=== PATIENT | male | born 1980 | race Caucasian/White ===

== ENCOUNTER 2017-08-10 14:31 | Emergency (ER) | payer OTHER, MEDICAID ==
[~2017-08-10] VITALS: Ht 172.7 cm; Wt 72.6 kg
--- NOTE | 2017-08-10 14:56 | Emergency Room Report ---
History of Present Illness General Chief Complaint: Allergic Reaction Source: Patient Present Illness HPI 37-year-old male presents to the emergency department complaining of progressive rash that is erythematous, itching and associated swelling that began on his neck, anterior chest and back this morning upon awakening. Patient states that he took a cold shower and the rash improved moderately but then came back even worse than it was initially. Patient states that upon return of the rash is now involved also parts of his face, bilateral upper extremities and his thought is. Patient denies fevers or chills. Patient states that he did smoke a new strain of marijuana that he is not used to and thinks that he may have an allergy to that. Patient denies allergies otherwise. Denies lesions/rashes elsewhere on the body. Denies new medications or body washes or creams. Denies swelling of the lips, tongue , throat or airway. Denies wheezing, or shortness of breath. Denies recent travel, recent illness or ill contacts. denies blisters, oral lesions, or sloughing of the skin. Pt. denies pain. Allergies: Coded Allergies: No Known Allergies (Unverified , 08/10/17) Patient History Past Medical History: see triage record Past Surgical History: none Pertinent Family History: none Social History: Reports: drug use - marijuana Reviewed Nursing Documentation: PMH: Agreed, PSxH: Agreed Nursing Documentation-PM Past Medical History: No Stated History Review of Systems All Other Systems: negative except mentioned in HPI Physical Exam Vital Signs Date Time Temp Pulse Resp B/P (MAP) Pulse Ox O2 Delivery O2 Flow Rate FiO2 08/10/17 14:34 98.3 72 18 122/72 100 Room Air 98.2 Sp02 EP Interpretation: reviewed, normal General Appearance: no apparent distress, alert, GCS 15, non-toxic Head: normocephalic, atraumatic Eyes: bilateral eye normal inspection, bilateral eye PERRL ENT: hearing grossly normal, normal pharynx, no angioedema, normal voice Neck: full range of motion Respiratory: chest non-tender, lungs clear, normal breath sounds, no respiratory distress, no accessory muscle use, no wheezing, speaking full sentences Cardiovascular #1: regular rate, rhythm, no edema, normal capillary refill Musculoskeletal: back normal, gait/station normal, normal range of motion, non- tender Neurologic: alert, oriented x3, responsive, motor strength/tone normal, sensory intact, speech normal, grossly normal Psychiatric: judgement/insight normal Skin: normal color, warm/dry, well hydrated, rash - erythematous plaques generalized on the torso, bilateral thighs and UE's as well as back, neck and scattered on the face. Lymphatic: no adenopathy Medical Decision Making PA Attestation Dr. Jurado is my supervising Physician whom patient management has been discussed with. Diagnostic Impression: Primary Impression: Allergic reaction Qualified Codes: T78.40XA - Allergy, unspecified, initial encounter Additional Impression: Urticaria ER Course 37-year-old male presents to the emergency department complaining of progressive rash that is erythematous, itching and associated swelling that began on his neck, anterior chest and back this morning upon awakening. Patient states that he took a cold shower and the rash improved moderately but then came back even worse than it was initially. Patient states that upon return of the rash is now involved also parts of his face, bilateral upper extremities and his thought is. Patient denies fevers or chills. Patient states that he did smoke a new strain of marijuana that he is not used to and thinks that he may have an allergy to that. Patient denies allergies otherwise. Denies lesions/rashes elsewhere on the body. Denies new medications or body washes or creams. Denies swelling of the lips, tongue , throat or airway. Denies wheezing, or shortness of breath. Denies recent travel, recent illness or ill contacts. denies blisters, oral lesions, or sloughing of the skin. Pt. denies pain. Ddx considered but are not limited to cellulitis, allergic reaction, angio edema , abscess Vital signs: are WNL, pt. is afebrile H&PE are most consistent with allergic urticaria ORDERS: none required at this time, the diagnosis is clinical ED INTERVENTIONS: -IM solumedrol -IM Benadryl DISCHARGE: At this time pt. is stable for d/c to home. Will provide printed patient care instructions, and any necessary prescriptions. Care plan and follow up instructions have been discussed with the patient prior to discharge. Last Vital Signs Date Time Temp Pulse Resp B/P (MAP) Pulse Ox O2 Delivery O2 Flow Rate FiO2 08/10/17 14:34 98.3 72 18 122/72 100 Room Air 98.2 Disposition: HOME, SELF-CARE Condition: Stable Scripts Diphenhydramine Hcl (BENADRYL ALLERGY) 25 Mg Tablet 50 MG PO Q6HR, #30 TAB Prov: Daysi Barajas 08/10/17 Patient Instructions: Allergies Additional Instructions: Take medications as directed. Follow up with a Primary Care Provider in 3-5 days for Allergy Testing Referral, even if your symptoms have resolved. --Please review list of primary care clinics, if you do not already have a primary care provider Return sooner to ED if new symptoms occur, or current symptoms become worse. Do not drink alcohol, drive, or operate heavy machinery while taking Benadryl as this may cause drowsiness. - Please note that this Emergency Department Report was dictated using [employer] technology software, occasionally this can lead to erroneous entry secondary to interpretation by the dictation equipment. Daysi Barajas Aug 10, 2017 14:56
[2017-08-10] MEDS ORDERED: DiphenhydrAMINE 50mg/ml Inj IM ONE (15:00)
[2017-08-10] MEDS ORDERED: Solu-MEDROL 125mg Inj IM ONE (15:00)
[2017-08-10 15:22] VITALS: BP 122/72
[2017-08-10 15:32] VITALS: BP 122/72
[2017-08-10] MEDS ORDERED: BENADRYL ALLERG25 M1 PO (15:33)
== END 2017-08-10 16:00 | disposition home or self-care (01) ==
LOC: EMR 15:40
DX: L50.0 Allergic urticaria (principal)
CPT/HCPCS: 96372; 99283; J1200; J2930